=== PATIENT | female | born 1960 ===

== ENCOUNTER 2021-05-29 19:09 | Emergency (ER) | payer BC ==
[2021-05-29 20:44] VITALS: BP 153/87; PULSE 87
[2021-05-29] MEDS ORDERED: cefTRIAXone 1 GM Vial IM ONE (21:22)
[2021-05-29] MEDS ORDERED: Azithromycin 500 MG Tab PO ONE (21:25)
== END 2021-05-29 21:55 | disposition home or self-care (01) ==
LOC: FB.ED 19:09
DX: U07.1 COVID-19 (principal); J12.82 Pneumonia due to coronavirus disease 2019; N39.0 Urinary tract infection, site not specified
CPT/HCPCS: 36415; 71046; 80053; 81001; 82947; 83880; 84484; 85025; 87086; 87088; 87186; 96372; 99285; A9270; J0696